=== PATIENT | female | born 1990 | race African-American/Black ===

== ENCOUNTER 2024-09-04 14:35 | Emergency (ER) | payer OTHER ==
[2024-09-04 14:41] VITALS: BP 121/80; PULSE 93; RESP 18; TEMP 97.8; BMI 44.5
[2024-09-04] MEDS ORDERED: KETOROLAC TROMETHAMINE 30 MG/1 ML VIAL ONE (15:37)
[2024-09-04] MEDS: KETOROLAC TROMETHAMINE 30 MG/1 ML VIAL IM ONE (15:40)
== END 2024-09-04 15:41 | disposition home or self-care (01) ==
LOC: JERFT 14:35
PROC: 3E0233Z Introduction of Anti-inflammatory into Muscle, Percutaneous Approach (ICD-10-PCS; principal; 2024-09-04)
DX: M54.12 Radiculopathy, cervical region (principal); M54.2 Cervicalgia; R20.0 Anesthesia of skin; R20.2 Paresthesia of skin; W01.0XXA Fall on same level from slipping, tripping and stumbling without subsequent striking against object, initial encounter
CPT/HCPCS: 99284-25